=== PATIENT | male | born 1960 | race Caucasian/White ===

== ENCOUNTER 2022-12-06 06:55 | Inpatient (IN) | payer OTHER ==
[2022-12-06] VITALS (8 sets, daily range): BP systolic 101–124; BP diastolic 52–67; TEMP 98.1–99; O2SAT 92–97
[~2022-12-06] VITALS: Ht 170.2 cm; Wt 81.2 kg
[~2022-12-06 06:55] MED LIST: ATOR80TA59 PO; BAYE81TA10 PO; LIDOCAINE 1% SDV 30ML VIAL As Ordered ONE; LISI20TA33 PO; LR 1,000 ML IV SCH; ceFAZolin SOD 2 GM in IV 1 EA IV ONE
[2022-12-06] MEDS ORDERED: ACETAMINOPHEN 1000MG 100ML IV BAG As Ordered ONE (07:13)
[2022-12-06] MEDS ORDERED: ROCURONIUM BROMIDE 50MG/5ML VIAL As Ordered ONE (07:16)
[2022-12-06] MEDS ORDERED: propofoL 200 MG/20 ML VIAL As Ordered ONE (07:16)
[2022-12-06] MEDS ORDERED: LIDOCAINE 2% 100MG/5ML SDV (FOR ANES.) As Ordered ONE (07:16)
[2022-12-06] MEDS ORDERED: SUGAMMADEX SODIUM 500 MG/5 ML VIAL (BRIDION) As Ordered ONE (07:17)
[2022-12-06] MEDS ORDERED: ONDANSETRON 4MG 2ML VIAL As Ordered ONE (07:18)
[2022-12-06] MEDS ORDERED: KETOROLAC 60MG 2ML VIAL As Ordered ONE (07:19)
[2022-12-06] MEDS ORDERED: fentaNYL 100 MCG/2 ML INJECTION As Ordered ONE (07:23)
[2022-12-06] MEDS ORDERED: MIDAZOLAM INJ 2MG/2ML VIAL As Ordered ONE (07:23)
[2022-12-06] MEDS ORDERED: HYDROmorphone HCL 2MG/ML 1ML VIAL As Ordered ONE (07:24)
[2022-12-06] MEDS ORDERED: ONDANSETRON 4MG 2ML VIAL IV PRN ×2 (07:35→11:45)
[2022-12-06] MEDS ORDERED: PERCOCET 5MG/325MG TAB PO PRN ×2 (07:35)
[2022-12-06] MEDS ORDERED: ACETAMINOPHEN TAB 650MG DOSE (2X325MG) PO PRN (07:35)
[2022-12-06] MEDS ORDERED: HOME MED LIST COMPLETE! XX SCH (07:45)
[2022-12-06] MEDS ORDERED: ESMOLOL INJ 100MG/10ML VIAL As Ordered ONE (08:20)
[2022-12-06] MEDS ORDERED: VASOPRESSIN INJ 20UNITS/ML 1ML VIAL As Ordered ONE (08:33)
[2022-12-06] MEDS ORDERED: HEPARIN SOD (PORCINE) 5000UNITS/ML 1ML VIAL/SYRINGE As Ordered ONE (08:47)
[2022-12-06] MEDS ORDERED: fentaNYL 100 MCG/2 ML INJECTION IV PRN (11:45)
[2022-12-06] MEDS ORDERED: oxyCODONE 5MG TAB PO PRN (11:45)
[2022-12-06] MEDS ORDERED: MORPHINE 2 MG/ML 1ML VIAL IV PRN (11:45)
[2022-12-06 12:57] LABS: HEMATOCRIT 35.5 % (42.0-52.0); MEAN CORPUSCULAR HEMOGLOBIN 34.8 pg (27.0-33.0); MEAN CORPUSCULAR HGB CONC 33.8 g/dl (32.0-36.5); MEAN CORPUSCULAR VOLUME 102.9 fl (80.0-96.0); PLATELET COUNT, AUTOMATED 132 10^3/uL (150-450); RED BLOOD COUNT 3.45 10^6/uL (4.30-6.10); WHITE BLOOD COUNT 9.6 10^3/uL (4.0-10.0)
[2022-12-06] MEDS: NS 1,000 ML IV SCH ×2 (13:01→23:09)
[2022-12-06 13:27] LABS: CALCIUM LEVEL 7.8 MG/DL (8.3-10.6); CREATININE FOR GFR 1.66 MG/DL (0.70-1.30); GLOMERULAR FILTRATION RATE 44.6 (>49); POTASSIUM SERUM 5.9 MMOL/L (3.5-5.1)
[2022-12-06] MEDS: DOCUSATE SODIUM 100MG CAPSULE PO SCH ×2 (13:50→20:31)
[2022-12-06] MEDS: HEPARIN SOD (PORCINE) 5000UNITS/ML 1ML VIAL/SYRINGE SC SCH ×2 (15:22→20:31)
[2022-12-06] MEDS: ceFAZolin SOD 1 GM in D5W MINI-BAG PLUS 50 ML IV SCH ×2 (15:23→23:09)
[2022-12-07 01:59] VITALS: BP 115/61; TEMP 98.6; O2SAT 95
[2022-12-07] MEDS: HEPARIN SOD (PORCINE) 5000UNITS/ML 1ML VIAL/SYRINGE SC SCH ×2 (05:12→14:20)
[2022-12-07 06:00] VITALS: BP 114/63; TEMP 98.6; O2SAT 96
[2022-12-07 06:24] LABS: HEMATOCRIT 30.7 % (42.0-52.0); HEMOGLOBIN 10.4 g/dl (13.5-17.5); MEAN CORPUSCULAR HEMOGLOBIN 34.2 pg (27.0-33.0); MEAN CORPUSCULAR HGB CONC 33.9 g/dl (32.0-36.5); PLATELET COUNT, AUTOMATED 107 10^3/uL (150-450); RED BLOOD COUNT 3.04 10^6/uL (4.30-6.10); WHITE BLOOD COUNT 7.3 10^3/uL (4.0-10.0)
[2022-12-07 07:01] LABS: BLOOD UREA NITROGEN 24 MG/DL (9-23); CALCIUM LEVEL 7.7 MG/DL (8.3-10.6); CARBON DIOXIDE LEVEL 26 MMOL/L (20-31); CHLORIDE LEVEL 107 MMOL/L (98-107); CREATININE FOR GFR 1.23 MG/DL (0.70-1.30); GLOMERULAR FILTRATION RATE > 60.0 (>49); GLUCOSE, FASTING 150 MG/DL (74-106); POTASSIUM SERUM 4.4 MMOL/L (3.5-5.1); SODIUM LEVEL 138 MMOL/L (136-145)
[2022-12-07 08:21] VITALS: BP 114/63
[2022-12-07] MEDS: DOCUSATE SODIUM 100MG CAPSULE PO SCH (08:21)
[2022-12-07] MEDS ORDERED: ATORVASTATIN 20 MG TAB PO SCH (09:00)
[2022-12-07 10:00] VITALS: BP 114/67; TEMP 98.8; O2SAT 99
[2022-12-07] MEDS ORDERED: PERCOCET PO (13:37)
[2022-12-07] MEDS ORDERED: COLA100C5 PO (13:37)
[2022-12-07] MEDS ORDERED: CIPR-249 PO (13:37)
[2022-12-07 14:00] VITALS: BP 113/65; TEMP 98.2; O2SAT 99
== END 2022-12-07 16:46 | disposition home or self-care (01) | DRG 714 ==
LOC: M OR 06:55 → M MSPAV 13:25
PROVIDERS: ADMIT Urology; ATTEND Urology
PROC: 8E0W4CZ Robotic Assisted Procedure of Trunk Region, Percutaneous Endoscopic Approach (ICD-10-PCS; 2022-12-06)
PROC: 0VT08ZZ Resection of Prostate, Via Natural or Artificial Opening Endoscopic (ICD-10-PCS; principal; 2022-12-06 07:30)
DX: C61 Malignant neoplasm of prostate (principal); Z79.899 Other long term (current) drug therapy; Z79.82 Long term (current) use of aspirin